=== PATIENT | female | born 1990 | race Hispanic/Latino ===

== ENCOUNTER 2020-12-13 16:04 | Emergency (ER) | payer OTHER, SELFPAY ==
[2020-12-13] VITALS (13 sets, daily range): BP systolic 112–119; BP diastolic 58–79; PULSE 60–76; RESP 12–17; TEMP 36.6; O2SAT 99–100
--- NOTE | ~2020-12-13 | XR_ITS ---
EXAMINATION: XR chest 2V EXAM DATE: 12/13/2020 16:41 INDICATION: Chest heaviness, symptoms one week. TECHNIQUE: Frontal and lateral projections of the chest obtained and reviewed. There is no prior kamron dy for comparison. FINDINGS: The lungs are clear. There are no pleural effusions. The cardiomediastinal silhouette is within normal limits. There is no pneumothorax suspected. The bones and soft tissues are unremarkab le. IMPRESSION: Normal chest x-ray exam. Reviewed, dictated and finalized at location A. IMPRESSION: Normal chest x-ray exam.
--- NOTE | 2020-12-13 16:06 | ECG_ITS ---
Measurements Intervals [place] Rate: 76 P: 63 [place]: 130 QRS: 48 QRSD: 88 T: 42 QT: 363 QTc: 409 Interpretive Statements SINUS RHYTHM WITH SINUS ARRHYTHMIA BORDERLINE T WAVE ABNORMALITY- ANTERIOR LEADS BASELINE ARTIFACT- I, II, AVR, AVL, AVF, V1, V3 BORDERLINE ECG Electronically Signed On 12-13-2020 18:55:09 CDT by Trenton Dominguez D.O.
[2020-12-13 16:22] LABS: Basophils Percent Auto 0.6 % (0.2-1.2); Eosinophils Absolute Auto 0.1 K/mm3 (0-0.3); Eosinophils Percent Auto 1.4 % (0-4.4); Hematocrit 40.9 % (37.0-47.0); Hemoglobin 13.9 g/dL (12.0-15.0); Immature Granulocyte Absolute 0.02 K/mm3 (0.00-0.031); Immature Granulocyte Percent A 0.3 % (0-0.5); Lymphocytes Absolute Auto 2.32 K/mm3 (0.9-3.2); Mean Corpuscular Hemoglobin 31.9 pg (26-34); Mean Corpuscular Volume 93.8 fl (80-100); Mean Platelet Volume 11.5 fl (7.4-10.4); Monocytes Absolute Auto 0.3 K/mm3 (0.1-0.6); Monocytes Percent Auto 4.8 % (2.6-8.5); Neutrophils Absolute Auto 3.7 K/mm3 (1.3-6.7); Neutrophils Percent Auto 56.9 % (45.5-73.1); Platelet Count Result 199 k/mm3 (150-375); Red Blood Count 4.36 M/mm3 (4.2-5.4); Red Cell Distribution Width 11.8 % (11.5-14.5); White Blood Count 6.5 K/mm3 (4.5-10.0)
[2020-12-13 16:32] LABS: INR 0.9; Prothrombin Time 12.5 Seconds (11.1-14.7)
[2020-12-13 16:33] LABS: Partial Thromboplastin Time 26.4 SECONDS (22.3-36.8)
[2020-12-13 16:35] LABS: Anion Gap 8 mmol/L (8-16); Blood Urea Nitrogen 11 mg/dL (7-17); Calcium 9.8 mg/dL (8.4-10.2); Carbon Dioxide 25 mmol/L (22-30); Chloride 106 mmol/L (98-107); Estimated CRCL calculation 122 ml/min; Estimated Glomerular Filt Rate > 60; Glucose 85 mg/dL (65-105); Potassium 3.7 mmol/L (3.4-5.0); Sodium 139 mmol/L (137-145)
[2020-12-13 16:47] LABS: Troponin I < 0.012 ng/mL (0.000-0.034)
[2020-12-13] MEDS: ASPIRIN 81 MG CHEWABLE TABLET 324 MG PO (17:40)
--- NOTE | 2020-12-13 18:41 | ED.CHESTPAIN ---
HPI - Chest Pain General Chief Complaint: Chest Pain Stated Complaint: chest pain Time Seen by Provider: 12/13/20 18:33 Source: patient Mode of arrival: ambulatory Limitations: no limitations History of Present Illness HPI narrative: This is a 30-year-old female that presents the emergency department for chest heaviness intermittent over the last week. No known exacerbating factors. Reports it is better when she relaxes and does some deep breathing. She was seen at urgent care for this and sent here for further evaluation. Denies fever, cough, shortness of breath, recent travel or surgery, exogenous estrogen use, or lower extremity edema. Related Data Allergies Allergy/AdvReac Type Severity Reaction Status Date / Time No Known Allergies Allergy Verified 12/13/20 17:24 Review of Systems Review of Systems: Narrative: CONSTITUTIONAL: Denies fever CARDIOVASCULAR: Reports chest pain. Denies palpitations, or edema. RESPIRATORY: Denies cough or dyspnea. All systems reviewed & are unremarkable except as noted in HPI and below PMFSH Past Medical History Medical History (Updated 12/13/20 @ 20:26 by Alexandria Duff PA-C) No active medical problems Surgical History Surgical History (Updated 12/13/20 @ 18:50 by Alexandria Duff PA-C) History of Social History Social History (Updated 12/13/20 @ 18:50 by Alexandria Duff PA-C) Substance use: never Gender identity (if verbalized by the patient): Female Exam Narrative: Exam Narrative: GENERAL: Well-appearing, well-nourished, and in no acute distress. HEAD: Normocephalic, atraumatic. EYES: EOMI. ENT: Nares clear, no rhinorrhea or epistaxis. Mucous membranes moist. Oropharynx without tonsillar hypertrophy exudate or other lesions. Bilateral TMs pearly napier non-bulging NECK: Supple. No adenopathy or masses. No carotid bruits or JVD CHEST: Clear to auscultation. No respiratory distress. No wheezes rales or rhonchi HEART: Regular rate and rhythm. No murmur heard. Normal peripheral pulses. EXTREMITIES: Normal range of motion. No edema. SKIN: Warm, dry, no rash. NEURO: No focal deficits. Alert and oriented x3. PSYCH: Normal mood and affect Course Vital Signs Vital signs: Vital Signs Temperature 97.9 F 12/13/20 16:11 Pulse Rate 76 12/13/20 16:11 Respiratory Rate 17 12/13/20 16:11 Blood Pressure 119/78 12/13/20 16:11 Pulse Oximetry 99 12/13/20 16:11 Temperature 97.9 F 12/13/20 16:11 Pulse Rate 68 12/13/20 19:16 Respiratory Rate 12 12/13/20 19:16 Blood Pressure 118/79 12/13/20 19:16 Pulse Oximetry 100 12/13/20 19:16 MDM - Chest Pain MDM Narrative Medical decision making narrative: Patient presents to the emergency department for intermittent episodes of chest pain present over the last week. Her vitals are stable. CBC and metabolic panel without concerning findings. EKG with nonspecific ST changes, baseline and 3-hour troponin are negative. Chest x-ray is without acute cardiopulmonary abnormality. PERC criteria negative. Patient was updated on case findings. Her heart score is a 2. She is stable and felt appropriate for further outpatient evaluation. She was given warnings to return the ER Lab Data Attestation: I reviewed the patient's lab results. Result diagrams: 12/13/20 16:15 12/13/20 16:15 Labs: Lab Results 12/13/20 12/13/20 12/13/20 Range/Units 16:15 16:15 16:15 WBC 6.5 (4.5-10.0) K/mm3 RBC 4.36 (4.2-5.4) M/mm3 Hgb 13.9 (12.0-15.0) g/dL Hct 40.9 (37.0-47.0) % MCV 93.8 (80-100) fl MCH 31.9 (26-34) pg MCHC 34.0 (32-36) g/dl RDW 11.8 (11.5-14.5) % Plt Count 199 (150-375) k/mm3 MPV 11.5 H (7.4-10.4) fl Immature Gran % (Auto) 0.3 (0-0.5) % Neut % (Auto) 56.9 (45.5-73.1) % Lymph % (Auto) 36.0 (18.3-44.2) % [place] % (Auto) 4.8 (2.6-8.5) % Eos % (Auto) 1.4 (0-4.4) % Baso % (Auto) 0.6 (0.2-1.2) %
[2020-12-13] MEDS: LORazepam INJ (*CRX) 2 MG/ML VIAL 0.5 MG IV PUSH (18:51)
--- NOTE | 2020-12-13 19:12 | PC.NURSE ---
Assumed care at this time. Report from Alecia PRESLEY.
[2020-12-13 20:10] LABS: Troponin I < 0.012 ng/mL (0.000-0.034)
== END 2020-12-13 20:34 | disposition home or self-care (01) ==
PROVIDERS: Emergency Provider Emergency Medicine
DX: R07.9 Chest pain, unspecified (principal)
CPT/HCPCS: 36415; 71046; 80048; 84484; 85025; 85610; 85730; 93005; 96374; 99284; A9270; J2060